=== PATIENT | female | born 1970 | race Caucasian/White ===

== ENCOUNTER 2017-03-17 16:44 | Emergency (ER) | payer OTHER ==
[~2017-03-17] VITALS: Ht 170.2 cm; Wt 49.4 kg
[~2017-03-17 16:44] MED LIST: NITR1CAP16 PO
[2017-03-17 16:49] VITALS: TEMP 36.7; Ht 170.2 cm; Wt 49.4 kg
[2017-03-17] MEDS ORDERED: XYLOCAINE 1%/SOD BICARB 20 ML VIAL INFIL ONE (17:00)
[2017-03-17] MEDS ORDERED: IBUP-1050 PO (17:01)
[2017-03-17] MEDS ORDERED: CEPH500C2 PO (17:54)
[2017-03-17] MEDS ORDERED: SULF800T23 PO (17:54)
--- NOTE | 2017-03-17 17:55 | EMERGENCY ROOM VISIT NOTE ---
ED Visit Note First contact with patient: 16:53 CHIEF COMPLAINT: Lump in left armpit times a week and a half HISTORY OF PRESENT ILLNESS: Patient is a [id number] 46-year-old white female who presents to emergency department for evaluation of a painful lump in her left axilla. She states that it hasn't present for about a week and a half and is progressively worsening. She notes that it is red and tender. It is slowly getting larger. She has not taken any medication for pain but has applied warm compresses to the area. Other than shaving she cannot relate any injury to the area. There has been no drainage or discharge. No fever, chills , or loss of appetite. She denies any prior history of skin infections or abscesses. REVIEW OF SYSTEMS: Review of systems as per HPI. All other systems reviewed were negative. At least 6 systems reviewed. PMH: Electronic medical records are reviewed and summarized as above/below. See Problem List. Her tetanus is up-to-date. SOCIAL HISTORY: Patient lives at home. Smoker. PHYSICAL EXAM: Vital Signs: Reviewed Nurse's notes. CONSTITUTIONAL: Well- appearing 46-year-old white female who is awake and alert and in no acute distress. INTEGUMENTARY: Examination of the left axilla show an oval-shaped erythematous, raised, indurated lesion measuring roughly 2 weeks 3 cm. It is tender and fluctuant centrally. No pointing or drainage. There is a zone of inflammation around it buy no lymphangitis. EMERGENCY DEPARTMENT COURSE: Using saline and Betadine cleansing, lidocaine anesthesia, and sterile technique, the abscess cavity was incised with a number 11 scalpel blade. Purulent material drained and more was expressed. Culture was obtained and stat Gram stain documented Gram-positive cocci. The abscess cavity was then probed for loculations and irrigated copiously with normal saline solution. A small amount of plain gauze packing was used. Bulky, absorbent dressing was applied. Patient was placed on Keflex and Bactrim pending culture results. Differential diagnoses included cyst, abscess, folliculitis, infected lymph node, among others. Problem List Medical Problems: (1) Asthma Status: Chronic Surgical Problems: (1) History of tubal ligation Status: Resolved Current/Historical Medications Scheduled Cephalexin Monohydrate (Keflex), 500 MG PO TID Sulfa/Trimethoprim (Bactrim Ds 800MG/160MG), 1 TAB PO BID Scheduled PRN Ibuprofen (Advil), 400 MG PO UD PRN for Headache or Pain Allergies Coded Allergies: No Known Allergies (Verified , 03/17/17) Vital Signs Date Time Temp Pulse Resp B/P Pulse Ox O2 Delivery O2 Flow Rate FiO2 03/17/17 18:35 53 16 131/67 99 03/17/17 16:49 36.7 67 18 135/79 99 Medications Administered Medications (Trade) Dose Ordered Sig/Tri Route Start Time Stop Time Status Last Admin Dose Admin Lidocaine HCl (Buffered Lidocaine 1% Inj) 20 ml ONE ONCE INFIL 03/17/17 17:00 03/17/17 17:01 DC 03/17/17 17:00 20 ML Acetaminophen/ Hydrocodone Bitart ([place] 5/325mg Home Pack) 1 homepack UD ONCE PO 03/17/17 18:00 03/17/17 18:01 DC 03/17/17 18:31 1 HOMEPACK Cephalexin Monohydrate (Keflex 500MG Home Pack) 1 homepack NOW ONCE PO 03/17/17 18:00 03/17/17 18:01 DC 03/17/17 18:31 1 HOMEPACK Trimethoprim/ Sulfamethoxazole (Sulfameth/ Trimeth Ds 800/ 160MG Home Pack) 1 homepack UD ONCE PO 03/17/17 18:00 03/17/17 18:01 DC 03/17/17 18:31 1 HOMEPACK Departure Information Impression Primary Impression: Axillary abscess Prescriptions Sulfa/Trimethoprim (Bactrim Ds 800MG/160MG) Tab 1 TAB PO BID, #10 TAB Prov: Shira Ahmadi PA 03/17/17 Cephalexin Monohydrate (KEFLEX) 500 Mg Cap 500 MG PO TID, #15 CAP Prov: Shira Ahmadi PA 03/17/17 Referrals Julio Marrufo M.D. (PCP) Patient Instructions My [facility] Additional Instructions Hydrocodone/Acetaminophen ([place]) 5/325 mg: Take 1-2 pills every four hours for breakthrough pain. Avoid alcohol, operating machinery or dangerous equipment, working on ladders or roofs, DRIVING, or situations where being under the influence may be dangerous. It is recommended to use an vhlz-[id number] stool softener such as Colace, 100mg twice daily while taking this medication to avoid constipation. Cephalexin(Keflex) 500mg: Take one pill 3 times daily for 5 days for your skin infection. All antibiotics can cause diarrhea. If this occurs and you feel worse or it does not resolve in 1-2 days follow up with your doctor or return to the Emergency Department as this could be signs of serious underlying problems. Any medication can cause an allergic reaction, stop the pills immediately and return to the ER for rash, hives, breathing difficulties, or swelling. Trimethoprim-Sulfamethoxazole(Bactrim DS): Take one pill twice daily for 5 days for your skin infection. All antibiotics can cause diarrhea. If this occurs and you feel worse or it does not resolve in 1-2 days follow up with your doctor or return to the Emergency Department as this could be signs of serious underlying problems. Any medication can cause an allergic reaction, stop the pills immediately and return to the ER for rash, hives, breathing difficulties, or swelling. Ibuprofen(Motrin, Advil) may be used for fever or pain. Use 600mg every six hours as needed. Take with food. Avoid using more than 2400mg in a 24 hour period. Do not use 2400mg per day for more than three consecutive days without physician direction. Prolonged inappropriate use can lead to stomach upset or ulcers. Warm compresses to the affected area 4 times daily for 15-20 minutes. Dressing changes daily, more often if the dressing becomes saturated or soiled. Remove the packing in 24 hours. Keep the area covered until healed. Rest and drink plenty of fluids. Continue current medications. Return to the ER for severe pain, persistent fevers, spreading redness, or any worsening of your condition. Follow up with your primary physician within 2-3 days for a recheck of the current condition.
[2017-03-17] MEDS ORDERED: SEPTRA DS HOME PACK 1 EA VIAL PO ONE (18:00)
[2017-03-17] MEDS ORDERED: NORCO 5/325MG HOME PACK PO ONE (18:00)
[2017-03-17] MEDS ORDERED: CEPHALEXIN 500MG HOME PACK 1 EA BTL PO ONE (18:00)
[2017-03-17 18:35] VITALS: BP 131/67; PULSE 53; O2SAT 99
--- NOTE | 2017-03-19 12:33 | Pharmacy Progress Note ---
ED Pharmacist Culture FollowUp Date of Service: Mar 19, 2017. Patient's L axilla abscess drainage cx is growing two organisms: MSSA (few) and CoN Staph (rare). Sensitivities for MSSA show the organism is sensitive to oxacillin as well as SMX/TMP. She was discharged on a 5 day course of Bactrim + Keflex following I&D. No action required at this time as current abx should cover MSSA well and may cover the CoN Staph too although sensitivities are not reported to CoN Staph by this lab. Per antibiogram the Bactrim likely covers 71% of CoN Staph isolates, if it is an infectious pathogen and not skin ca. I&D alone is sometimes successful in otherwise healthy adults with skin abscess less than 2cm and no signs of systemic toxicity. No reports of fever, or chills and VS were stable while in ED.
== END 2017-03-17 18:36 | disposition home or self-care (01) ==
LOC: C.EDB 16:45 → C.EDD 18:36
DX: L02.412 Cutaneous abscess of left axilla (principal); F17.210 Nicotine dependence, cigarettes, uncomplicated; J45.909 Unspecified asthma, uncomplicated; Z98.51 Tubal ligation status